=== PATIENT | female | born 1965 | race American Indian/Alaskan Native ===

== ENCOUNTER 2017-09-12 14:18 | Outpatient (CLI) | payer BC ==
--- NOTE | 2017-09-16 08:36 | Magnetic Resonance Report ---
BILATERAL BREAST MRI WITHOUT AND WITH CONTRAST: 09/12/17 14:18:00 CLINICAL: Palpable left breast lump with a negative mammogram and ultrasound. The area of concern is described as subareolar at 5 o'clock. COMPARISON:. TECHNIQUE: Axial 1.0-mm T1 without, axial high resolution 2.0-mm T2 and axial 1.0-mm dynamic Vibrant high-resolution postcontrast T1 fat saturation sequences on a 1.5 Brina magnet. The examination was performed with an 8 channel dedicated [place] breast coil. Post processing with CAD and subtraction was performed by the radiologist on an [employer] workstation. 14.0 cc of Multihance was injected without incident for the contrast portion of the exam. Consent was obtained prior to the administration of the contrast. FINDINGS: Right: Mild background parenchymal enhancement. No mass or suspicious enhancement. No suspicious lymph nodes. Left: Mild background parenchymal enhancement. No mass or suspicious enhancement. A 6 mm benign intraparenchymal lymph node with central fat is identified at 6 o'clock 3 cm from the nipple. This may correlate with the palpable finding. A 9 mm benign intraparenchymal lymph node with central fat is identified at 9 o'clock approximately 7 cm from the nipple. No suspicious lymph nodes. IMPRESSION: Benign left intramammary lymph nodes and otherwise negative exam. Recommend clinical followup and routine mammographic screening. 2 -- Benign
== END 2017-09-12 14:19 | disposition home or self-care (01) ==
LOC: SPVIMAG 14:18
PROVIDERS: ATTEND Surgery
DX: N63.20 Unspecified lump in the left breast, unspecified quadrant (principal)
CPT/HCPCS: 0159T; A9577; C8908; 77059

== ENCOUNTER 2020-08-03 08:24 | Outpatient (CLI) | payer BC ==
--- NOTE | 2020-08-03 09:51 | Mammography Report ---
DIGITAL SCREENING MAMMOGRAM WITH CAD, 08/03/2020 INDICATION: Routine screening mammography. TECHNIQUE: Digital bilateral 2D mammography was obtained in the craniocaudal and mediolateral obliq ue projections. This examination was interpreted with the benefit of Computer-Aided Detection analysi s. COMPARISON: 10/20/2018, 09/04/2017 FINDINGS: Breast Density: There are scattered areas of fibroglandular density. There is no evidence of dominant mass, suspicious calcifications or architectural distortion in eithe r breast. A biopsy clip is again seen in the upper outer quadrant middle/posterior depth of the right breast. There is a stable nodular density in the upper outer quadrant middle depth of the left breas t. IMPRESSION: Follow up recommendation: Routine yearly BI-RADS Category 2: Benign. A "normal" or negative report should not discourage follow up or biopsy of a clinically significant f inding. A written summary of these findings will be mailed to the patient. The patient will be entered into a mammography reporting system which will generate a reminder letter for the patient's next appointmen t at the appropriate interval. The [employer] recommends yearly mammograms starting at age 40 and continuing as l robb as a woman is in good health. Breast MRI is recommended for women with an approximate 20-25% or greater lifetime risk of breast cancer, including women with a strong family history of breast or ova guerline cancer or who have been treated for Hodgkin's disease. Signer Name: Olvin Chairez MD Signed: 08/03/2020 9:47 AM Workstation Name: [email or web address]
== END 2020-08-03 08:25 | disposition home or self-care (01) ==
LOC: MAMMO 08:24
PROVIDERS: ATTEND Obstetrics & Gynecology
DX: Z12.31 Encounter for screening mammogram for malignant neoplasm of breast (principal)
CPT/HCPCS: 77067

== ENCOUNTER 2021-09-10 08:21 | Outpatient (CLI) | payer BC ==
--- NOTE | 2021-09-10 14:23 | Mammography Report ---
DIGITAL SCREENING MAMMOGRAM WITH CAD, 09/10/2021 CLINICAL INFORMATION / INDICATION: Routine screening mammography. SCREENING MAMMOGRAM TECHNIQUE: Digital bilateral 2D mammography was obtained in the craniocaudal and mediolateral obliqu e projections. This examination was interpreted with the benefit of Computer-Aided Detection analysis . COMPARISON: 06/16/2014 through 08/03/2020. FINDINGS: Breast Density: The breasts are heterogeneously dense, which may obscure small masses. No dominant mass, suspicious calcifications, or architectural distortion in either breast. Benign-appearing nodularity in the left breast is stable. A right biopsy clip is again identified. IMPRESSION: No mammographic evidence of malignancy. Follow up recommendation: Routine yearly BI-RADS Category 2: Benign. A "normal" or negative report should not discourage follow up or biopsy of a clinically significant f inding. A written summary of these findings will be mailed to the patient. The patient will be entered into a mammography reporting system which will generate a reminder letter for the patient's next appointmen t at the appropriate interval. The [employer] recommends yearly mammograms starting at age 40 and continuing as l robb as a woman is in good health. Breast MRI is recommended for women with an approximate 20-25% or greater lifetime risk of breast cancer, including women with a strong family history of breast or ova guerline cancer or who have been treated for Hodgkin's disease. Signer Name: Tony Frank MD Signed: 09/10/2021 2:19 PM Workstation Name: [email or web address]
== END 2021-09-10 08:22 | disposition home or self-care (01) ==
LOC: MAMMO 08:21
PROVIDERS: ATTEND Obstetrics & Gynecology
DX: Z12.31 Encounter for screening mammogram for malignant neoplasm of breast (principal)
CPT/HCPCS: 77067